=== PATIENT | female | born 1980 | race Caucasian/White ===

== ENCOUNTER 2024-07-29 11:01 | Outpatient (CLI) | payer OTHER, SELFPAY ==
--- OUTSIDE RECORDS SUMMARY | 2024-07-29 12:34 | XMS_ITS | Encounter Summary ---
Author Organization [facility] Address [facility] [place] [address] Care Team Providers Care Handle Finisher Name Role Phone Chapo No MD Primary Care Provider [phone] Harish Ornelas MD Primary Care Provider [phone] Encounter Details Date Type Department Care Team (Late st Contact Info) Description 09/12/2018 Abstract [facility] CONVERSION [address] [place], [place] [id number] , Generic ConversionMD Social History Tobacco Use Types Packs/Day Years Used Date Smoking Tobacco: Every Day Smokeless Tobacco: Never Alcohol Use Standard Drinks/Week Comments Yes 0 (1 standard drink = 0.6 oz pur e alcohol) Comments Unknown Sex and Gender Information Value Date Recorded Sex Assigned at Not on file 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 Gender Identity Not on file Sexual Orientation Not on file documented as of this encounter Plan of Treatment Not on file documented as of this encounter Visit Diagnoses Not on filedocumented in this encounter Additional Health Concerns Infection Onset Date Last Indicated Resolved Time COVID-19 Rule Out 08/29/2020 08/29/2020 08/29/2020 7:56 PM CDT documented as of this encounter Care Teams Handle Finisher Relationship Specialty Start Date End Date Chapo No MD [address] [place] [id number] PCP - General FAMILY PRACTICE 12/03/17 07/25/20 Harish Ornelas MD [address] [place] [address] PCP - General FAMILY PRACTICE 07/26/20 documented as of this encounter
--- OUTSIDE RECORDS SUMMARY | 2024-07-29 12:34 | XMS_ITS | Encounter Summary ---
Author Organization [facility] Address [address] [place] [address] Care Team Providers Care Regional Airline Pilot Name Role Phone Chapo No MD Primary Care Provider [phone] Harish Ornelas MD Primary Care Provider [phone] Encounter Details Date Type Department Care Team (Late st Contact Info) Description 06/21/2017 Abstract [facility] CONVERSION [address] [place] [address] , Generic ConversionMD Social History Tobacco Use Types Packs/Day Years Used Date Smoking Tobacco: Never Assessed Comments Unknown Sex and Gender Information Value Date Recorded Sex Assigned at Not on file 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 Gender Identity Not on file Sexual Orientation Not on file documented as of this encounter Plan of Treatment Not on file documented as of this encounter Visit Diagnoses Not on filedocumented in this encounter Additional Health Concerns Infection Onset Date Last Indicated Resolved Time COVID-19 Rule Out 08/29/2020 08/29/2020 08/29/2020 7:56 PM CDT documented as of this encounter Care Teams Regional Airline Pilot Relationship Specialty Start Date End Date Chapo No MD [place] [address] PCP - General FAMILY PRACTICE 12/03/17 07/25/20 [place] [address] PCP - General FAMILY PRACTICE 07/26/20 documented as of this encounter
--- OUTSIDE RECORDS SUMMARY | 2024-07-29 12:34 | XMS_ITS | Clinical Summary ---
Author Organization [facility] Address [address] [place] [address] Care Team Providers Care Dairy Chemist Name Role Phone Harish Ornelas MD Primary Care Provider [phone] Allergies Active Allergy Reactions Criticality Noted Date Comments Sulfamethoxazole-Trime thoprim Anaphylaxis,Hives High 08/24/2020 Blue Dyes (Parenteral) Hives,Angioedema 018 ORAL BLUE dyes food color Seasonal Unknown 08/04/2012 Shellfish-Derived Products Anaphylaxis High 08/24/2020 Medications zolpidem 5 MG tablet Take 1 tablet (5 mg total) by mouth nightly as needed for Sleep. Active traMADol (ULTRAM) 50 MG tabletIndications:A cute Pain < 7 Day Supply Indications: Acute Pain < 7 Day Supply 1-2 every 6 hours as needed for pain 20 tablet 3 Active ondansetron (ZOFRAN-ODT) 4 MG disintegrating tablet Take 1 tablet (4 mg total) by mouth every 6 (six) hours as needed for Nausea. 10 tablet 3 Active Active Problems Problem Noted Date Diagnosed Date Patellofemoral pain syndrome of right knee 09/09 Polysubstance overdose 12/03/2017 Toxic encephalopathy 12/03/2017 History of suicide attempt 12/03/2017 Smoker 12/03/2017 Acute hypokalemia 12/03/2017 Tylenol ingestion 12/02/2017 Family History Medical History Relation Comments Mental Health Father Relation Status Comments Brother 1 Alive Brother 2 Alive Brother 3 Alive Father Mother Alive Sister Alive Social History Tobacco Use Types Packs/Day Years Used Date Smoking Tobacco: Former Cigarettes Q uit: 04/14/2019 Smokeless Tobacco: Never Tobacco Cessation:Counseling Given: Not Answered Alcohol Use Standard Drinks/Week Comments Not Currently 0 (1 standard drink = 0.6 oz pur e alcohol) Comments No Sex and Gender Information Value Date Recorded Sex Assigned at Not on file 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 Gender Identity Not on file Sexual Orientation Not on file Last Filed Vital Signs Vital Sign Reading Time Taken Comments Blood Pressure 102/64 09/23/2022 11:35 AM CDT Pulse 98 09/23/2022 9:36 AM CDT Temperature 36.6 C (97.8 F) 09/23/2022 9:36 AM CDT Respiratory Rate 18 09/23/2022 9:36 AM CDT Oxygen Saturation 99% 09/23/2022 12:00 PM CDT Inhaled Oxygen Concentration - - Weight 70.5 kg (155 lb 6.8 oz) 09/23/2022 9:36 A M CDT Height 165.1 cm (5' 5 ) 09/23/2022 9:36 AM CDT Body Mass Index 25.86 09/23/2022 9:36 AM CDT Plan of Treatment Health Maintenance Due Date Last Done Comments Annual Physical 1981 Hepatitis C 1996 DTaP, Tdap and Td Vaccines ( 1 - Tdap) 1997 Hepatitis B Vaccines (1 of 3 - 19+ 3-dose series) 1997 Mammogram Screening 2018 COVID-19 Vaccine (2023-2 5 season) 2023 Colorectal Cancer Screening Colonoscopy (10 Years) 09/01/2030 09/01/2020, 09/01/2020 HPV Vaccines Aged Out No longer eligi ble based on patient's age to complete this topic Meningococcal B Vaccine Aged Out No l onger eligible based on patient's age to complete this topic Meningococcal Vaccine Aged Out No todd amanda eligible based on patient's age to complete this topic Pneumococcal Vaccine: Pediatrics (0 to 5 Years) and At-Risk Patients (6 to 49 Years) Aged Out No longer eligible b ased on patient's age to complete this topic RSV Immunizations Under 20 Months Aged Out No longer eligible b ased on patient's age to complete this topic Procedures Procedure Name Priority Date/Time Associated Diagnosis Comments COLONOSCOPY 09/01/2020 8:19 AM CDT from Last 3 Months or Most Recently Relevant to Health Maintenance Results * COLONOSCOPY (09/01/2020 8:19 AM CDT) Elliott Downey MD GI PROCEDURE ORDERABLES Final Result from Last 3 Months or Most Recently Relevant to Health Maintenance Insurance [employer] Advance Directives * Full Code (Latest Code Status on File) Date Activated Date Inactivated Comments 12/02/2017 8:47 PM 12/07/2017 6:25 PM Care Teams Dairy Chemist Relationship Specialty Start Date End Date Harish Ornelas MD [address] [place] [address] PCP - General FAMILY PRACTICE 07/26/20
[2024-07-29 13:35] LABS: CRP 0.6 mg/dL (<1.0)
== END 2024-07-29 11:02 | disposition home or self-care (01) ==
PROVIDERS: Visit Provider Nurse Practitioner Family
DX: K52.9 Noninfective gastroenteritis and colitis, unspecified (principal); R14.0 Abdominal distension (gaseous)
CPT/HCPCS: 36415; 82784; 83516; 86140